=== PATIENT | female | born 1965 | race Two or more races ===

== ENCOUNTER 2024-02-11 08:14 | Emergency (ER) | payer MEDICAID ==
[~2024-02-11] VITALS: Ht 162.6 cm; Wt 89.2 kg
[2024-02-11 10:33] LABS: Urine Bacteria None Seen /hpf (None Seen)
[2024-02-11 10:50] LABS: Urine Blood Negative /uL (Negative); Urine Clarity Clear (Clear); Urine Color Light-Yellow (Yellow); Urine Mucus FEW (None Seen); Urine Protein, UAD Negative (Negative); Urine Specific Gravity 1.026 (1.001-1.035); Urine Urobilinogen Normal (Negative); Urine WBC 1 /hpf (0 - 5); Urine pH 5.5 (5.0-9.0)
[2024-02-11 11:32] LABS: Vaginal Trichomonas Not Present
[2024-02-11 11:33] LABS: Vaginal Bacteria Many; Vaginal Clue Cells Few; Vaginal Epithelial Cells Many
[2024-02-11] MEDS ORDERED: MET075VC VG (11:49)
[2024-02-11 11:57] VITALS: BP 115/70; PULSE 81; RESP 20; TEMP 98; O2SAT 99
== END 2024-02-11 12:16 | disposition home or self-care (01) ==
LOC: ER 08:14
DX: N76.0 Acute vaginitis (principal); Z88.0 Allergy status to penicillin; B96.89 Other specified bacterial agents as the cause of diseases classified elsewhere
CPT/HCPCS: 81001; 87210